=== PATIENT | female | born 1990 | race Caucasian/White ===

== ENCOUNTER → 2018-01-29 | Outpatient (CLI) | payer BC ==
[2018-01-29] MEDS: GADOBUTROL 7.5 MMOL/7.5 ML (GADAVIST) VIAL IV ONE (10:06)
--- NOTE | 2018-01-29 12:24 | Diagnostic Imaging Report ---
PROCEDURE: MR imaging of the brain with and without contrast. Indication: Multiple syncopal and pre-syncopal episode. TECHNIQUE: Multiplanar and multisequence pre and post intravenous contrast MR imaging of the brain. COMPARISON: None. FINDINGS: The ventricles and sulci are unremarkable. There is no midline shift or mass effect. There is normal soriano-white signal differentiation. There are no significant white matter signal abnormalities. There are no restricted areas of diffusion to suggest an acute area of infarct. Postcontrast images demonstrate no abnormal areas of enhancement. Normal flow-voids in the carotid siphons and basilar artery. There is mild diffuse thickening of the visualized paranasal sinuses. No air-fluid levels.. IMPRESSION: Negative-appearing pre and post contrast MRI examination of the brain. Dictated by: Dictated on workstation # [id number]
== END ==
LOC: RAD 09:13
PROVIDERS: ATTEND Nurse Practitioner Family
DX: R55 Syncope and collapse (principal)
CPT/HCPCS: 70553

== ENCOUNTER → 2019-02-24 | Outpatient (CLI) | payer BC ==
--- NOTE | 2019-02-24 16:34 | Diagnostic Imaging Report ---
INDICATION: patient, survey. TECHNIQUE: Multiple real-time grayscale images were obtained over the gravid uterus. COMPARISON: None. FINDINGS: A single live intrauterine fetus is seen measuring at 20 weeks 5 days by composite measurements with sonographic EDC of 07/09/2019. The fetus is in cephalic presentation. Placenta is posterior with no evidence of previa. Amniotic fluid is qualitatively normal. There is no subchorionic bleed. Cervical length is 5.6 cm. Maternal adnexa could not be visualized. Anatomic survey demonstrates normal-appearing kidneys, bladder, stomach, and intracranial ventricles. Normal four-chambered heart view is seen. Three-vessel cord and cord insertion appeared unremarkable. The spine appears unremarkable.. Biometrical measurements are as follows: Biparietal 4.99 cm, age 21 weeks 1 days. Head circumference 18.69 cm, age 21 weeks 1 days. Abdominal circumference 14.61 cm, age 20 weeks 0 days. Femur length 3.35 cm, age 20 weeks 4 days. Sonographic estimate age: 20 weeks 5 days. Sonographic estimated date of delivery: 07/09/2019. Estimated Weight: 345 gm (+/- 50 gm). LMP percentile: 63%. heart rate: 134 beats per minute. number: 1 of 1. IMPRESSION: Single live intrauterine fetus measuring 20 weeks 5 days in size. There is no detectable sonographic abnormality. Dictated by: Dictated on workstation # [id number]
== END ==
LOC: RAD 14:53
PROVIDERS: ATTEND Obstetrics & Gynecology
DX: Z36.89 Encounter for other specified antenatal screening (principal); Z3A.20 20 weeks gestation of pregnancy
CPT/HCPCS: 76805

== ENCOUNTER 2019-07-06 18:26 | Inpatient (IN) | payer BC ==
[~2019-07-06] VITALS: Ht 165.1 cm; Wt 85.2 kg
--- NOTE | 2019-07-06 18:22 | NUR ---
Arrived to unit ambulates self accompanied by s.o. Pt here for induction of labor. Wt obtained and to room 320. gowned and urine sample obtained. to bed and monitors on. oriented to room, call light and surroundings. plan of care reviewed with pt and s.o.
[2019-07-06 19:18] LABS: BASOPHILS % (AUTO) 0 % (0-10); EOSINOPHILS # (AUTO) 0.3 10^3/uL (0.0-0.3); EOSINOPHILS % (AUTO) 2 % (0-10); HEMATOCRIT 36 % (35-52); HEMOGLOBIN 12.2 G/DL (11.5-16.0); LYMPHOCYTES # (AUTO) 2.6 X 10^3 (1.0-4.0); LYMPHOCYTES % (AUTO) 20 % (12-44); MEAN CORPUSCULAR HEMOGLOBIN 30 PG (25-34); MEAN CORPUSCULAR HGB CONC 34 G/DL (32-36); MEAN CORPUSCULAR VOLUME 88 FL (80-99); MEAN PLATELET VOLUME 10.4 FL (7.4-10.4); MONOCYTES # (AUTO) 0.9 X 10^3 (0.0-1.0); MONOCYTES % (AUTO) 7 % (0-12); NEUTROPHILS % (AUTO) 70 % (42-75); PLATELET COUNT 285 10^3/uL (130-400); RED CELL DISTRIBUTION WIDTH 13.4 % (10.0-14.5); WHITE BLOOD COUNT 12.8 10^3/uL (4.3-11.0)
[2019-07-06] MEDS: D5 LR IV SOLUTION 1,000 ML IV SCH (19:29)
[2019-07-06 19:37] VITALS: BP 126/93
--- NOTE | 2019-07-06 19:45 | NUR ---
Dr. Torres called with report of pt. Informed of pt contraction patters, SVE, and strip. Informed that pt is rating contractions at a 7 on pain scale and asking when she can get her epidural. orders a 250ml bolus of NS to be infused. If bolus does not space out contractions, should be informed. If contractions do space out, pt should be give 50mg cytotec PO. IV pain med order also given.
[2019-07-06] MEDS ORDERED: NS IV 1000 ML 1,000 ML ONE (19:47)
[2019-07-06] MEDS ORDERED: NS (IVPB) 250 ML ONE (19:51)
[2019-07-06] MEDS ORDERED: NS (IVPB) 250 ML IV ONE (20:00)
[2019-07-06] MEDS ORDERED: NS IV 1000 ML 1,000 ML IV SCH (20:00)
[2019-07-06 20:52] VITALS: BP 124/92
[2019-07-06] MEDS ORDERED: ONDANSETRON 4 MG/2 ML (SDV) Z0FRAN ONE (21:36)
[2019-07-06] MEDS ORDERED: ONDANSETRON 4 MG/2 ML (SDV) Z0FRAN IVP PRN (21:45)
[2019-07-06 21:55] VITALS: BP 123/88
[2019-07-06] MEDS ORDERED: CATHETER FLUSH 10 ML SYR IV SCH (22:00)
--- NOTE | 2019-07-06 22:03 | NUR ---
Pt. states that she feels a trickle of fluid. Amnio swab turned blue. No bleeding noted at this time.
[2019-07-06] MEDS ORDERED: HYDROmorphone 2 MG/ML VIAL (DILAUDID) ONE (22:28)
[2019-07-06] MEDS ORDERED: HYDROmorphone 2 MG/ML VIAL (DILAUDID) IV ONE (22:30)
[2019-07-06 22:47] VITALS: BP 126/93
[2019-07-06 22:55] VITALS: BP 122/78
[2019-07-06] MEDS ORDERED: LACTATED RINGERS 1,000 ML IV ONE (23:56)
[2019-07-07] VITALS (45 sets, daily range): BP systolic 94–169; BP diastolic 53–112
[2019-07-07] MEDS ORDERED: SUFENTA 0.6MCG/ML BUPIVA 0.125 100 ML ONE (00:04)
--- NOTE | 2019-07-07 00:06 | NUR ---
Anesthesia called and informed that pt. is ready for epidural. Platelets reviewed and nurse informs anesthesia that bolus is going. States that "he will be right there."
--- NOTE | 2019-07-07 00:33 | NUR ---
0033: Anesthesia in room and pt set up on side of bed. 0049: Local given. 0054: Epidural catheter threaded at this time. Vitals remain stable and pt is tolerating well. 0056: #1 test dose given. 0058: #2 test dose given. 0100: Bolus given. 0104: Epidural gtt started. Vitals remain stable. Pt. laid back down at this time. 0110: Pt. continues to complain about stabbing pain in her right hip. Anesthesia notified.
[2019-07-07] MEDS ORDERED: LACTATED RINGERS 1,000 ML IV SCH (01:02)
[2019-07-07] MEDS ORDERED: EPIDURAL (SUFENTA 0.6MCG/ML BUPIVA 0.125%) 100 ML BAG EPI SCH (01:15)
[2019-07-07] MEDS ORDERED: diphenhydrAMINE 50 MG/ML INJ (BENADRYL) IV PRN ×2 (01:15→08:00)
[2019-07-07] MEDS ORDERED: NALOXONE 0.4 MG/ML 1 ML (NARCAN) VIAL IV PRN ×3 (01:15→08:00)
[2019-07-07] MEDS ORDERED: LIDOCAINE PF 2% 5 ML (XYLOCAINE) VIAL ONE ×2 (01:15→07:25)
[2019-07-07] MEDS ORDERED: METOCLOPRAMIDE INJ 10 MG/2 ML (REGLAN) IV PRN (01:15)
[2019-07-07] MEDS ORDERED: ONDANSETRON 4 MG/2 ML (SDV) Z0FRAN IV PRN ×2 (01:15→08:00)
--- NOTE | 2019-07-07 01:30 | NUR ---
Pt. complaining of right hip pain. Anesthesia in room adjusting epidural cath.
--- NOTE | 2019-07-07 01:44 | NUR ---
0144:Pt. sat back up for epidural replacement. Thomas gives local at this time and cath placed without problems. 0147: Test dose given and cath rehooked up to pump. 0149: Bolus also given at this. 0152: Pt. laid back down. Epidural pump restarted. 0155: Pt. states that she is feeling relief with next contraction.
--- NOTE | 2019-07-07 02:34 | NUR ---
Dr. Torres called with update on pt. Informed of ROM, epidural placement, and that pt is now dilated to 7cm. Informed that pt is very comfortable with epidural and sleeping. notified of variables, and that pt has been turned up on her right side to hopefully alleviate them. No further orders at this time.
[2019-07-07] MEDS: D5 LR IV SOLUTION 1,000 ML IV SCH (03:21)
[2019-07-07] MEDS ORDERED: OXYTOCIN PRE-MIX DRIP 500 ML IV ONE ×2 (05:11→06:31)
[2019-07-07] MEDS ORDERED: FAMOTIDINE 20MG/2ML IV (PEPCID) ONE (06:01)
[2019-07-07] MEDS ORDERED: CITRIC ACID/SOB CIT (BICITRA) 30 ML UDC ONE (06:01)
[2019-07-07] MEDS ORDERED: ceFAZolin 2 GM/50 ML NS 50 ML ONE (06:01)
[2019-07-07] MEDS ORDERED: fentaNYL INJECTION 100 MCG/2 ML AMP ONE (06:19)
--- NOTE | 2019-07-07 06:19 | History & Physical-OB ---
OB - Chief Complaint & HPI Date/Time Date of Admission: Date of Admission: Jul 06, 2019 at 18:26 Date seen by a Provider: Jul 07, 2019 Time Seen by a Provider: 03:30 Chief Complaint/History OB-Reason for Admission/Chief: Onset of Labor Hx : 1 Hx Para: 0 Expected Date of Delivery: Jul 14, 2019 Gestational Age in Weeks: 38 Gestational Age in Days: 6 Other reason for admission: Patient was brought in last night for induction of labor but was found to be in active labor therefore no augmentation was ordered. Admission Nurse Assessment Rev: Yes History of Labs B pos Antibody neg RI RPR NR HBsAg NR HIV NR GC neg GBS neg Allergies and Home Medications Allergies Coded Allergies: No Known Drug Allergies (Unverified , 01/29/18) Patient Home Medication List Home Medication List Reviewed: Yes OB - History Hx of Present Care: Yes Ultrasounds: Normal mid trimester US Obstetrical Complications: None Medical Complications: None Delivery History Adverse Rxn to Tranfusion: No Patient Past Medical History n/a Social History/Family History Recent Infectious Disease Expo: No Alcohol Use: Denies Use Recreational Drug Use: No Immunizations Hepatitis A: Yes Hepatitis B: Yes Date of Influenza Vaccine: Mar 17, 2020 OB - Admission Exam Physical Exam Vitals: Vital Signs 07/06/19 07/07/19 22:47 01:04 Temp 36.6 Pulse 91 Resp 18 B/P (MAP) 127/74 (91) Pulse Ox 98 O2 Delivery Room Air HEENT: NCAT Heart: Rhythm Normal Lungs: Clear Abdomen: Gravid Extremities: Normal Reflexes: Normal Cervical Dilatation: 3cm Effacement: 75% Station: -1 Membranes: Intact Heart Rate: 130's Accelerations: Accelerations Present Decelerations: No Decelerations Short Term Variability: Present District Gauger Variability: Average (6-25) Contractions on Admission: < 5 Minutes Apart Intensity: Firm Labs Laboratory Tests Test 07/06/19 18:55 Range/Units White Blood Count 12.8 H 4.3-11.0 10^3/uL Red Blood Count 4.10 L 4.35-5.85 10^6/uL Hemoglobin 12.2 11.5-16.0 G/DL Hematocrit 36 35-52 % Mean Corpuscular Volume 88 80-99 FL Mean Corpuscular Hemoglobin 30 25-34 PG Mean Corpuscular Hemoglobin Concent 34 32-36 G/DL Red Cell Distribution Width 13.4 10.0-14.5 % Platelet Count 285 130-400 10^3/uL Mean Platelet Volume 10.4 7.4-10.4 FL Neutrophils (%) (Auto) 70 42-75 % Lymphocytes (%) (Auto) 20 12-44 % Monocytes (%) (Auto) 7 0-12 % Eosinophils (%) (Auto) 2 0-10 % Basophils (%) (Auto) 0 0-10 % Neutrophils # (Auto) 9.0 H 1.8-7.8 X 10^3 Lymphocytes # (Auto) 2.6 1.0-4.0 X 10^3 Monocytes # (Auto) 0.9 0.0-1.0 X 10^3 Eosinophils # (Auto) 0.3 0.0-0.3 10^3/uL Basophils # (Auto) 0.0 0.0-0.1 10^3/uL OB - Assessment/Plan/Diagnosis Assessment Assessment: active labor Admission Dx 29 yo @ 38.6 weeks Active labor GBS neg Admission Status: Inpatient Order (span 2 midnights) Reason for Inpatient Admission: Active labor at term Plan Plan: Expectant Management YOBANY NATH DO Jul 07, 2019 06:19
[2019-07-07] MEDS ORDERED: OXYTOCIN PRE-MIX DRIP 500 ML IV SCH (06:21)
--- NOTE | 2019-07-07 06:26 | Progress Note ---
Standard Progress Note Progress Notes/Assess & Plan Date Seen by a Provider: Jul 07, 2019 Time Seen by a Provider: 06:22 Progress/Assessment & Plan Been pushing with the patient since noted to be complete at 330 am, allowed to labor down for about an hour, started pushing actively at 440 and continued to do so until 0615 at which point we were making little to no progress, large caput was noted, and OP presentation palpated. Due to the maternal exhaustion expressed by the patient, as well as suspected CPD I discussed with the patient proceeding with PLTCS. Risk reviewed vs. ongoing risk for the infant. We discussed the now noted meconium fluid on exam, and heart rate decelerations which are occurring with contractions. After all questions were answered, consent was obtained and patient was taken to the OR. YOBANY NATH DO Jul 07, 2019 06:26
[2019-07-07] MEDS ORDERED: ONDANSETRON 4 MG/2 ML (SDV) Z0FRAN IVP PRN ×2 (06:30→08:00)
[2019-07-07] MEDS ORDERED: MEASLES,MUMPS,RUBELLA 1 EA INJ SC SCH (06:30)
[2019-07-07] MEDS ORDERED: ceFAZolin 2 GM/50 ML NS 50 ML IV NR (06:30)
[2019-07-07] MEDS ORDERED: TETANUS,DIPTH,PERTUSS P/F (BOOSTRIX) 0.5 ML VIAL IM SCH (06:30)
--- NOTE | 2019-07-07 06:31 | Discharge Inst-Women's Service ---
Discharge Inst-Women's Serv Depart Medication/Instructions New, Converted or Re-Newed RX: RX on Chart Final Diagnosis POD 2 PLTCS Problems Reviewed?: Yes Consults/Follow Up Additional Follow Up: Yes Orders/Referrals Dr. Torres in 7-10 days and in 6 weeks Activity Activity: Activity as Tolerated Driving Instructions: No Driving for 1 Week NO SMOKING: NO SMOKING Nothing Inside Vagina: No Douching, No [place], No Tampons Diet Discharge Diet: No Restrictions Symptoms to Report to : Bleeding Excessive, Pain Increased, Fever Over 101 Degrees F, Vaginal Bleeding Increase, Questions/Concerns For Any Problems or Questions: Contact Your Physician Skin/Wound Care Infection Signs and Symptoms: Increased Redness, Foul Odor of Wound, Increased Drainage, Skin Itchy or Has a Rash, Increased Swelling, Temperature Above 101 F Operative Area Clean and Dry: Keep Incision Clean/Dry Stitches/Perham/Dermabond: Dermabond, Care of Stitches Bathing Instructions: YOBANY Billingsley DO Jul 07, 2019 06:31
[2019-07-07] MEDS ORDERED: ACHD5005 PO (06:33)
[2019-07-07] MEDS ORDERED: IBUP-844 PO (06:33)
[2019-07-07] MEDS ORDERED: ONDANSETRON 4 MG/2 ML (SDV) Z0FRAN ONE (06:33)
[2019-07-07] MEDS ORDERED: DOCU-244 PO (06:33)
[2019-07-07] MEDS ORDERED: BUPIVACAINE 0.5% 30 ML (SENSORCAINE) VIAL ONE (07:25)
[2019-07-07] MEDS ORDERED: PHENYLEPHRINE 100 MCG/ML 10 ML (ANESTHESIA) SYR ONE (07:25)
[2019-07-07] MEDS ORDERED: MEPERIDINE (DEMEROL) INJ 50 MG/ML IVP ONE (08:00)
[2019-07-07] MEDS: DOCUSATE SODIUM 100 MG (COLACE) CAP PO SCH ×2 (09:00→20:32)
--- NOTE | 2019-07-07 09:00 | NUR ---
Pt transferred to PP room 307 from OB PACU via bed accompanied by RN, SN, S.O. and without incident. Pt and family oriented to room and call light. IV pitocin to pump. SCD's activated. packet explained. Toradol given. Pt denies further needs or concerns
[2019-07-07] MEDS: KETOROLAC 30 MG/ML VIAL IV SCH ×3 (09:32→20:32)
--- NOTE | 2019-07-07 11:45 | NUR ---
Pericare performed, fresh vpad and chux under pt. Light rubra lochia noted. Ice pack to perineum for labial swelling. Pt denies needs or concerns at this time.
--- NOTE | 2019-07-07 12:15 | OPERATIVE REPORT ---
DATE OF SERVICE: PREOPERATIVE DIAGNOSES: 1. A 29-year-old G1, P0 at 39 weeks' gestation. 2. Cephalopelvic disproportion. POSTOPERATIVE DIAGNOSES: 1. A 29-year-old G1, P0 at 39 weeks' gestation. 2. Cephalopelvic disproportion. 3. Persistent occiput posterior and meconium stained fluid. PROCEDURE: Primary low transverse section. SURGEON: Harpreet Nath DO ANESTHESIA: Spinal. ESTIMATED BLOOD LOSS: 500 mL. URINE OUTPUT: 25 mL clear at the end of the procedure. FLUIDS: 1500 mL lactated Ringer's solution. FINDINGS: A live female weighing 7 pounds 13 ounces, Apgars of 8 and 9. Grossly normal appearing uterus, bilateral fallopian tubes and ovaries. SPECIMEN SENT: Placenta. INDICATIONS FOR PROCEDURE: This 29-year-old female who is a patient who had sought care in my office. She presented last night in spontaneous labor and was scheduled for induction last night as well. She progressed without any augmentation to complete and 0 station, at which point I presented to the hospital and proceeded to push the patient for almost 2 hours with little and no progression of the vertex. There was a large caput developing on the head and there was some swelling of the vulva. Discussed with the patient my suspicion for cephalopelvic disproportion. Due to lack of progress, I recommended proceeding with . Risks of the procedure were discussed with the patient in detail including risk of bleeding, infection, damage to surrounding structures including, but not limited to bowel, bladder, ureter, kidneys, possible need for reoperation, possible postoperative complications, postoperative recovery timeframe, risk from anesthesia and even . After everything was discussed with the patient in detail, consent was obtained and the patient was taken to the operating room. OPERATIVE REPORT IN DETAIL: Once in the operating room, spinal anesthesia was found to be adequate, placed in the supine position with leftward tilt, prepped and draped in normal sterile fashion. A timeout was performed and anesthesia was tested. I then make a Pfannenstiel skin incision with a knife and carried down to underlying fascia using Bovie cautery. Fascial incision was extended laterally using Bovie cautery. Superior aspect of the fascial incision was grasped with Guillermina clamps, tented up and dissected off the underlying rectus muscles. The inferior aspect of the fascial incision was then grasped with Guillermina clamps, tented up and dissected off the underlying rectus muscles. Rectus muscle was then dissected down the midline using sharp dissection, which exposed the peritoneum, which I entered bluntly and extended using blunt traction. I then placed the Moustapha ring retractor within the peritoneal incision, which offers excellent lateral sidewall retraction. I then identified the lower uterine segment and make a low transverse incision to the vesicouterine peritoneum and bluntly dissected off of the lower uterine segment, creating a bladder flap. I then proceeded with myotomy until membranes were visualized and amniotomy occurs through the uterine incision. I then extended the uterine incision laterally and superiorly using bandage scissors. The infant was found in vertex presentation, occiput posterior. The infant's head was elevated at the incision where with gentle fundal pressure, the infant's head was delivered through the incision where the nares and oropharynx were bulb suctioned. Anterior and posterior shoulders were delivered. Infant was then brought to the operative field. The cord was doubly clamped and cut and was handed off to waiting nurses in attendance. A nuchal cord was reduced prior to delivery of the body. Cord blood was collected for analysis, 3-vessel cord with intact placenta was delivered spontaneously thereafter. IV Pitocin was initiated to facilitate uterine contraction. Uterine fundus confirmed by manual massage. The uterus was then exteriorized and cleared of all endometrial clots and debris. I then proceeded with closing the uterine incision using 0 Vicryl suture in running locked fashion. Second layer of imbricating 0 Monocryl was placed. Excellent hemostasis was noted after doing this. I then placed the uterus back within the pelvis and copiously irrigated the pelvis using normal saline. No active bleeding noted from any of my dissection planes. I placed Interceed antiadhesive agent over my low transverse incision and proceeded with closing the peritoneum using 3-0 Vicryl suture in a running fashion. Rectus muscle was reapproximated using 3-0 Vicryl suture in interrupted fashion. The fascia was reapproximated using 0 Vicryl suture in running fashion. Subcutaneous tissue was reapproximated using 3-0 plain interrupted subcutaneous stitch and skin reapproximated using 4-0 Monocryl running subcuticular. Dermabond was applied to incision and sterile dressing with adhesive white tape. The patient tolerated the procedure well and was taken to recovery area in stable condition. Lap and sponge counts were correct at the end of the procedure. Instrument count was correct as well. Two grams of Ancef were given preoperatively for infection prophylaxis. Job ID: [id number] DocumentID: [id number] Dictated Date: 07/07/2019 08:02:03 Airline Attendant Date: 07/07/2019 12:12:41 Dictated By: HARPREET NATH DO
--- NOTE | 2019-07-07 13:04 | NUR ---
RT notified of need for IS instruction
[2019-07-07] MEDS ORDERED: CATHETER FLUSH 10 ML SYR IV SCH (14:00)
--- NOTE | 2019-07-07 15:00 | NUR ---
Pt c/o 01/08 pain. Scheduled toradol given at this time, pt declines lortab initially. Pt encouraged to get up to void, as it has been 6hrs since catheter removal and bladder distention could contribute to abd. pain. Pt hesitant but agrees. Pt assisted to standing at bedside by this RN and pt S.O. Pt ambulates to bathroom accompanied by RN and S.O. Pt voids without difficulty but misses collection hat. Three small clots noted in toilet, but scant rubra lochia noted otherwise. Pt resistant to fundal check. Pt assisted back to bed without incident. Pt request lortab. One lortab given with crackers. Fresh ice water provided.
[2019-07-07] MEDS: HYDROcodone/APAP 5 MG/325 MG (LORTAB) TAB PO PRN ×2 (15:26→21:09)
--- NOTE | 2019-07-07 16:00 | NUR ---
CARE ASSUMED OF THIS PT.
--- NOTE | 2019-07-07 16:28 | NUR ---
PT HAS HAD HER TDAP VACCINE.
--- NOTE | 2019-07-07 16:40 | NUR ---
UP TO THE BATHROOM WITH ASSIST. VOIDED 700 CC URINE. PERICARE WITH PAD CHANGE. BACK TO BED WITHOUT PROBLEMS. PT STATES IT WAS MUCH EASIER THIS TIME TO GET UP.
--- NOTE | 2019-07-07 17:45 | NUR ---
EATING DINNER. S.O. AT BEDSIDE. OFFERS NO COMPLAINTS.
--- NOTE | 2019-07-07 18:15 | NUR ---
NURSERY RN FINGER FEEDING . SEE NSY NOTES.
--- NOTE | 2019-07-07 19:00 | NUR ---
VISITORS IN ROOM. PT JUST GOT UP TO THE BATHROOM WITH ASSIST. DOING MUCH BETTER. OFFERED LORTAB BUT DECLINES AT THIS TIME.
[2019-07-08 00:20] VITALS: BP 105/70
[2019-07-08] MEDS: KETOROLAC 30 MG/ML VIAL IV SCH (02:30)
[2019-07-08 04:30] VITALS: BP 112/81
[2019-07-08 05:33] LABS: BASOPHILS % (AUTO) 0 % (0-10); EOSINOPHILS # (AUTO) 0.2 10^3/uL (0.0-0.3); EOSINOPHILS % (AUTO) 1 % (0-10); HEMATOCRIT 31 % (35-52); HEMOGLOBIN 10.3 G/DL (11.5-16.0); LYMPHOCYTES # (AUTO) 1.9 X 10^3 (1.0-4.0); LYMPHOCYTES % (AUTO) 15 % (12-44); MEAN CORPUSCULAR HEMOGLOBIN 29 PG (25-34); MEAN CORPUSCULAR HGB CONC 33 G/DL (32-36); MEAN CORPUSCULAR VOLUME 90 FL (80-99); MEAN PLATELET VOLUME 10.4 FL (7.4-10.4); MONOCYTES # (AUTO) 1.1 X 10^3 (0.0-1.0); MONOCYTES % (AUTO) 8 % (0-12); NEUTROPHILS # (AUTO) 9.9 X 10^3 (1.8-7.8); NEUTROPHILS % (AUTO) 76 % (42-75); PLATELET COUNT 196 10^3/uL (130-400); RED CELL DISTRIBUTION WIDTH 13.2 % (10.0-14.5); WHITE BLOOD COUNT 13.1 10^3/uL (4.3-11.0)
[2019-07-08] MEDS: HYDROcodone/APAP 5 MG/325 MG (LORTAB) TAB PO PRN ×4 (06:47→21:24)
--- NOTE | 2019-07-08 07:14 | Postpartum Progress Note ---
Note Note Day # 1 Subjective: Patient is without complaints. Ambulating, voiding. Tolerating a regular diet without nausea or vomiting. Normal lochia. Pain is well controlled with oral pain medications. Objective: Physical Exam: General - Alert and oriented, no apparent distress Abdomen - Soft, appropriately tender to palpation, non-distended, fundus firm at umbilicus Extremities - no edema, negative Pipe's bilaterally Incision- c/d/i Assessment: POD 1 PLTCS Acute blood loss anemia Plan: Routine care. Encourage breast feeding. Encourage ambulation. Ferrous sulfate supplementation. Plan for discharge tomorrow Vitals - Labs Vital Signs - I&O Vital Signs Date Time Temp Pulse Resp B/P (MAP) Pulse Ox O2 Delivery O2 Flow Rate FiO2 07/08/19 04:30 36.8 81 16 112/81 (91) 98 Room Air 07/08/19 00:20 36.8 78 20 105/70 (82) 98 Room Air 07/07/19 20:30 36.8 89 18 126/87 (100) 99 Room Air 07/07/19 16:30 36.9 91 18 126/82 (97) 99 Room Air 07/07/19 13:30 Room Air 07/07/19 12:00 36.7 81 18 102/72 (82) 97 Room Air 07/07/19 09:10 37.3 100 18 120/70 (87) 97 Room Air 07/07/19 08:44 Room Air 07/07/19 08:44 37.7 18 121/81 (94) 100 Room Air 07/07/19 08:30 37.7 14 109/81 (90) 100 Room Air 07/07/19 08:30 Room Air 07/07/19 08:15 Room Air 07/07/19 08:15 37.8 22 110/80 (90) 99 Room Air 07/07/19 08:00 37.2 18 95/65 (75) 100 Room Air 07/07/19 08:00 Room Air 07/07/19 07:44 36.6 15 94/58 (70) 99 Room Air 07/07/19 07:44 Room Air I & O 07/08/19 07:00 Intake Total 1550 ml Output Total 25 ml Balance 1525 ml Labs Laboratory Tests 07/08/19 05:20: White Blood Count 13.1H, Red Blood Count 3.50L, Hemoglobin 10.3L, Hematocrit 31L , Mean Corpuscular Volume 90, Mean Corpuscular Hemoglobin 29, Mean Corpuscular Hemoglobin Concent 33, Red Cell Distribution Width 13.2, Platelet Count 196, Mean Platelet Volume 10.4, Neutrophils (%) (Auto) 76H, Lymphocytes (%) (Auto) 15, Monocytes (%) (Auto) 8, Eosinophils (%) (Auto) 1, Basophils (%) (Auto) 0, Neutrophils # (Auto) 9.9H, Lymphocytes # (Auto) 1.9, Monocytes # (Auto) 1.1H, Eosinophils # (Auto) 0.2, Basophils # (Auto) 0.0 YOBANY NATH DO Jul 08, 2019 07:13
[2019-07-08 08:00] VITALS: BP 122/73
--- NOTE | 2019-07-08 08:00 | NUR ---
A.M. ASSESSMENT COMPLETED. VSS. DOING MUCH BETTER TODAY. CARING FOR INFANT IN ROOM. S.O. AT BEDSIDE.
[2019-07-08] MEDS: DOCUSATE SODIUM 100 MG (COLACE) CAP PO SCH ×2 (08:31→21:23)
[2019-07-08] MEDS: IBUPROFEN 600 MG (MOTRIN) TAB PO SCH ×4 (08:32→21:23)
--- NOTE | 2019-07-08 09:19 | Anesthesia-Regional Post-Op ---
Regional Patient Condition Mental Status: Alert, Oriented x3 Circulation: Same as Pre-Op Headache: Absent Sensation: Full Recovery Motor Block: Absent Post Op Complications Complications None Follow Up Care/Instructions Patient Instructions None needed. Anesthesia/Patient Condition Patient is doing well, no complaints, stable vital signs, no apparent adverse anesthesia problems. No complications reported per nursing. YOVANI RODRIGUEZ CRNA Jul 08, 2019 09:19
--- NOTE | 2019-07-08 10:00 | NUR ---
SHOWERED WITHOUT PROBLEMS . PT VOIDED IN THE SHOWER. CONTINUES TO CARE FOR IN ROOM. HAS BEEN IN TO SEE PT. AND ASSIST. SEE NURSERY NOTES.
[2019-07-08 12:00] VITALS: BP 122/85
--- NOTE | 2019-07-08 12:04 | NUR ---
LORTAB GIVEN. PT HAS AMBULATED IN THE PAREDES. MOVING SLOWLY BUT WITHOUT PROBLEMS. PLEASANT AFFECT. FAMILY AT BEDSIDE.
--- NOTE | 2019-07-08 14:00 | NUR ---
SITTING UP IN CHAIR. DENIES ANY COMPLAINTS AT THIS TIME.
--- NOTE | 2019-07-08 16:00 | NUR ---
AMBULATING IN THE HALLWAY WITH S.O. VISITORS AT BEDSIDE.
--- NOTE | 2019-07-08 17:00 | NUR ---
FINGER FEEDING BABY.
[2019-07-08 17:30] VITALS: BP 117/80
[2019-07-08 21:22] VITALS: BP 122/91
--- NOTE | 2019-07-08 21:24 | NUR ---
Pt. requesting pain meds, wants to take 2 Lortab, given as order is usually q4 hrs prn pain, reviewed w/pt. will now be able to take again in 6 hours, pt. verbalized understanding.
[2019-07-09 03:07] VITALS: BP 109/78
[2019-07-09] MEDS: IBUPROFEN 600 MG (MOTRIN) TAB PO SCH ×2 (03:07→09:28)
--- NOTE | 2019-07-09 06:21 | Postpartum Progress Note ---
Note Note Day # 2 Subjective: Patient is without complaints. Ambulating, voiding. Tolerating a regular diet without nausea or vomiting. Normal lochia. Pain is well controlled with oral pain medications. Objective: Physical Exam: General - Alert and oriented, no apparent distress Abdomen - Soft, appropriately tender to palpation, non-distended, fundus firm at umbilicus Extremities - no edema, negative Pipe's bilaterally Incision- c/d/i Assessment: POD 2 PLTCS Acute blood loss anemia Plan: Routine care. Encourage breast feeding. Encourage ambulation. Ferrous sulfate supplementation. Plan for discharge today Vitals - Labs Vital Signs - I&O Vital Signs Date Time Temp Pulse Resp B/P (MAP) Pulse Ox O2 Delivery O2 Flow Rate FiO2 07/09/19 03:07 36.7 78 18 109/78 (88) 99 Room Air 07/08/19 21:22 36.8 84 18 122/91 (101) 97 Room Air 07/08/19 17:30 36.7 85 18 117/80 (92) 99 Room Air 07/08/19 12:00 36.7 81 18 122/85 (97) 99 Room Air 07/08/19 08:00 36.5 92 18 122/73 (89) 98 Room Air I & O 07/09/19 07:00 Intake Total 4040 ml Output Total 2600 ml Balance 1440 ml YOBANY NATH DO Jul 09, 2019 06:21
--- NOTE | 2019-07-09 06:27 | NUR ---
Dr. Torres here at bedside at this time.
[2019-07-09] MEDS: DOCUSATE SODIUM 100 MG (COLACE) CAP PO SCH (09:28)
[2019-07-09 09:30] VITALS: BP 111/78
[2019-07-09] MEDS: HYDROcodone/APAP 5 MG/325 MG (LORTAB) TAB PO PRN (09:40)
--- NOTE | 2019-07-09 13:50 | NUR ---
Post op home instructions given. Mom verbalized understanding. Awaiting labs on baby to see if she will be discharged also. 1615 Mom and being discharged togehter.To exit via wheelchair.
== END 2019-07-09 16:15 | disposition home or self-care (01) | DRG 787 ==
LOC: LDRP 18:26
PROVIDERS: ADMIT Obstetrics & Gynecology; ATTEND Obstetrics & Gynecology
PROC: 10D00Z1 Extraction of Products of Conception, Low, Open Approach (ICD-10-PCS; principal; 2019-07-07 06:48)
DX: O65.4 Obstructed labor due to fetopelvic disproportion, unspecified (principal); O64.0XX0 Obstructed labor due to incomplete rotation of fetal head, not applicable or unspecified; O77.0 Labor and delivery complicated by meconium in amniotic fluid; O90.81 Anemia of the puerperium; D62 Acute posthemorrhagic anemia; Z3A.38 38 weeks gestation of pregnancy; Z37.0 Single live birth
CPT/HCPCS: 36415; 85025; 86850; 86900; 86901; 94664